=== PATIENT | male | born 1965 | race Caucasian/White ===

== ENCOUNTER 2016-06-25 13:00 | Inpatient (IN) | payer MEDICARE ==
[~2016-06-25] VITALS: Ht 180.3 cm; Wt 189.0 kg
--- NOTE | ~2016-06-25 | HP ---
PATIENT'S NAME: JELANI UP [facility] AGE: 50 Y [address] ROOM: [address] [place], [place] [address] LOCATION: GICU ADMIT DATE: 06/25/2016 History & Physical DISCHARGE DATE: FAMILY PHYSICIAN: PHYSICIAN, UNKNOWN ATTENDING PHYSICIAN: PAYTON ASCENCIO DATE OF SERVICE: CHIEF COMPLAINT: Acute GI gastrointestinal bleed. HISTORY OF PRESENT ILLNESS: This is a 50-year-old male with history of acid reflux disease, type 2 diabetes, and morbid obesity, who presented from the Emergency Room in the [facility] after presenting with a one-day history of gross melena and hematemesis. The patient tells me that he noticed bright red blood when he wiped earlier this morning, and then shortly following that, he started having nausea and vomiting with profuse gross hematemesis, which led him to promptly go to the Emergency Room. The patient, on initial evaluation in the Emergency Department was noted to be hypotensive, and was continuously having hematemesis. He required rapid resuscitation and received two units of packed cells and IV fluid resuscitation, and was started on a Levophed drip. He was transferred over to [facility] to the ICU Intensive Care Unit for continued care. The patient might have had a history of liver disease and some suggestion of possible esophageal varices on prior CT scans per report from the Emergency Room physician, but the patient tells me that he is not aware of any of this. He does not have any history of drinking that he knows, but he is a long-time diabetic. The patient is currently hemodynamically stable on a very low dose of Levophed, and is being prepped to get emergent EGD esophagogastroduodenoscopy. The patient otherwise denies any abdominal pain. Last hematemesis was about three hours ago. He is awake and alert and oriented, and fairly comfortable. He denies any fever, chills, diarrhea, or any recent sick contacts. He denies the use of [id number] NSAIDs nonsteroidal anti-inflammatory drugs, Advil, or ibuprofen use. Not on any blood thinner as well including aspirin and Plavix. PAST MEDICAL HISTORY: 1. Type 2 diabetes. 2. Morbid obesity. 3. Hypertension. 4. Chronic lower extremities swelling. SOCIAL HISTORY: PATIENT'S NAME: [facility] AGE: 50 Y [address] ROOM: [id number] [place], [place] [address] LOCATION: [facility] ADMIT DATE: 06/25/2016 History & Physical DISCHARGE DATE: FAMILY PHYSICIAN: PHYSICIAN, UNKNOWN ATTENDING PHYSICIAN: PAYTON ASCENCIO The patient was a heavy smoker. No reports of alcohol or drug use. FAMILY HISTORY: The patient has a history of stomach cancer in his mother. REVIEW OF SYSTEMS: A ten-point review of systems was conducted, and were all negative except as described in the HPI history of present illness. LABORATORY VALUES: Hemoglobin from [facility] was 11, but this was done while the patient was actively losing blood. PHYSICAL EXAMINATION: VITAL SIGNS: Blood pressure was 113/61, heart rate was 82, respiratory rate was 18, saturating 98% on 2 L nasal cannula, and temperature was 98.5. HEENT: Head: Normocephalic and atraumatic. Moist mucous membranes. No scleral icterus. No conjunctival pallor. GENERAL APPEARANCE: Obese male. No acute distress. Awake and alert and oriented x3. NECK: Supple. No JVD jugular venous distention. SKIN: Without rash or lesions. He does have chronic venous insufficiency skin changes on the lower extremities bilaterally. CHEST: Diminished breath sounds, but clear to auscultation bilaterally. HEART: S1 and S2. Regular rate and rhythm. ABDOMEN: Soft and nontender and nondistended. Positive bowel sounds. EXTREMITIES: Bilateral non-pitting edema. NEUROLOGICAL: Grossly nonfocal. ASSESSMENT AND PLAN: 1. Acute gastrointestinal bleed, likely an upper GI etiology. Differentials include bleeding ulcer, Fabienne-Feldman tear, and esophageal varices. The patient has received two units of PRBCs packed red blood cells at [facility], and received adequate volume with resuscitation with normal saline. His blood pressure right now on a very low dose of Levophed drip is 113/56, fairly stable hemodynamically. The patient is being prepped for an emergent EGD esophagogastroduodenoscopy. I will prepare two units of FFP fresh frozen plasma and packed cells, and place it on standby in case further transfusion is needed. We will closely monitor H and H hemoglobin and hematocrit every eight hours and as needed. 2. Shock secondary to acute blood loss. Management as above. 3. Acute blood loss anemia. Management as above. 4. Type 2 diabetes, on sliding-scale insulin. We will monitor Accu-Chek a.c. and at bedtime. PATIENT'S NAME: [facility] AGE: 50 Y [address] ROOM: [place] [address] LOCATION: [facility] ADMIT DATE: 06/25/2016 History & Physical DISCHARGE DATE: FAMILY PHYSICIAN: PHYSICIAN, UNKNOWN ATTENDING PHYSICIAN: PAYTON ASCENCIO 5. Morbid obesity. Lifestyle modification is advised. 6. Lower extremities edema bilaterally appeared to be related to chronic venous insufficiency. I am not sure if the patient has some form of heart failure as well, but does not report any history of coronary artery disease that he knows of. 7. DVT deep venous thrombosis prophylaxis. Use SCDs sequential compression devices. MD SHIMA HERNANDEZ/harley /[id number] D: T: 0 HISTORY & PHYSICAL
--- NOTE | ~2016-06-25 | CON ---
PATIENT'S NAME: JELANI UP [facility] AGE: 50 Y [address] ROOM: [place] [address] LOCATION: GICU ADMIT DATE: 06/25/2016 Consultation DISCHARGE DATE: FAMILY PHYSICIAN: PHYSICIAN, UNKNOWN ATTENDING PHYSICIAN: PAYTON PABLO DATE OF CONSULTATION: 06/25/2016 REFERRING PHYSICIAN: ROBERTH GONZALEZ MD REFERRING PROVIDER: Dr. Pablo. REASON FOR CONSULTATION: Upper GI bleed. HISTORY OF PRESENT ILLNESS: This is a very pleasant 50-year-old male who was recently transferred from [place] emergency room after presenting with hematemesis. The patient does recall having bright red blood per rectum yesterday evening. He then began having acute onset of bloody emesis with associated mid-epigastric discomfort. The patient does recall having 5 episodes prior to evaluation in the emergency room at [place]. The patient was noted to have esophageal varices as well as liver cirrhosis on the CT scan in December 2013. He denies any liver workup. He believes the cause for his liver disease is secondary to possible hepatitis C. The patient denies any history of upper endoscopy or colonoscopy. He denies any current associated shortness of breath or lightheadedness. The patient has been tachycardic since admission to the emergency room. The patient denies any current fever or chills, chest pain, chest pressure, or shortness of breath. On arrival to [place] emergency room, hemoglobin was found to 11.0. Current laboratory work at [facility] is pending at this time. PAST MEDICAL HISTORY: Liver cirrhosis of unknown diagnostic clear etiology, history of gastroesophageal reflux disease, hypercholesterolemia, diabetes mellitus type 2, tobacco dependency, venous insufficiency, diabetic neuropathy. PAST SURGICAL HISTORY: I and D of scrotal abscess, eye surgery, right hand surgery. No history of upper endoscopy or colonoscopy. SOCIAL HISTORY: The patient smokes approximately 1 to 2 packs of cigarettes per day. He denies any alcohol use or illicit drug use. FAMILY HISTORY: The patient's father had diabetes mellitus and heart disease. The patient's PATIENT'S NAME: JELANI UP [facility] AGE: 50 Y [address] ROOM: [place] [address] LOCATION: [facility] ADMIT DATE: 06/25/2016 Consultation DISCHARGE DATE: FAMILY PHYSICIAN: PHYSICIAN, UNKNOWN ATTENDING PHYSICIAN: PAYTON PABLO mother had stomach cancer. She also developed throat cancer and at the age of 6767 years old. ALLERGIES: PENICILLIN, SULFA, CODEINE. CURRENT MEDICATIONS: Please refer to the medication administration record. REVIEW OF SYSTEMS: A 10-point review of systems was completed. All were negative except for those identified in the history of present illness. PHYSICAL EXAMINATION: GENERAL: Pleasant 50-year-old male who appears to be in no acute distress. VITAL SIGNS: Temperature 97.7, pulse of 154, respirations of 21, oxygen saturations 93%, blood pressure 146/61. SKIN: [place], warm, dry. No jaundice. HEENT: Head is normocephalic and atraumatic. Pupils equal, round, and reactive to light. Sclerae mildly icteric. Oral mucosa is pink and moist. No thyromegaly. NECK: Soft and supple. CARDIOVASCULAR: Tachycardic. Normal S1 and S2. RESPIRATORY: Respirations even and unlabored. Slight expiratory wheeze noted. ABDOMEN: Round, distended, nontender, slightly firm. Bowel sounds hypoactive x4 quadrants. MUSCULOSKELETAL: No muscle weakness or atrophy. EXTREMITIES: No clubbing, cyanosis, or edema. NEUROLOGICAL: Grossly nonfocal. LABS AND DIAGNOSTICS: Laboratory was reviewed from outside facility. The patient had white blood cell count of 11.6, hemoglobin 11.0, hematocrit of 31.7, MCV of 112.8. Sodium 141, potassium of 3.9, chloride of 103, CO2 of 21, glucose of 253, BUN of 17, creatinine 0.79, calcium of 8.8, total protein of 6.1, globulin of 3.6, albumin of 2.5. AST of 36, ALT of 31, alkaline phosphatase of 77, total bilirubin of 2.20. ProBNP was 242. PT 19.5, INR is 1.7, PTT of 30. The patient did undergo a chest x-ray showing no acute cardiopulmonary process or concerning cardiopulmonary abnormality. KUB showed nonobstructive bowel gas pattern. ASSESSMENT AND PLAN: Again, this is a 50-year-old male who was transferred from [facility] with acute upper GI bleed. The patient most likely has variceal bleed with PATIENT'S NAME: JELANI UP [facility] AGE: 50 Y [address] ROOM: [address] [place], [place] [address] LOCATION: GICU ADMIT DATE: 06/25/2016 Consultation DISCHARGE DATE: FAMILY PHYSICIAN: PHYSICIAN, UNKNOWN ATTENDING PHYSICIAN: PAYTON PABLO known liver cirrhosis. The patient will undergo an upper endoscopy for further evaluation. We will be placing the patient on octreotide drip with a bolus to be given. Rocephin 1 g will be given prior to procedure and continued every 24 hours as well as erythromycin 250 mg IV for emptying of the stomach. The patient's INR was slightly elevated at 1.7 as we will be giving 2 units of fresh frozen plasma prior to the endoscopy as well. This was discussed with the patient as well as the patient's significant other who was at bedside during our interview. The patient verbalizes understanding. Further recommendations to be given status post upper endoscopy. The patient currently is also on a Protonix drip and should be continued as well until further investigation. Thank you for this consult and allowing us to participate in the care of this patient. We will continue to monitor, evaluate, and treat as appropriate. FABIÁN WILKES APRN FOR MD RODOLFO FRASER/harley /[id number] d: 06/25/167 t: 07/02/16 0851, CONSULTATION REPORT
--- NOTE | ~2016-06-25 | DS ---
PATIENT'S NAME: JELANI UP [facility] AGE: 50 Y [address] ROOM: [id number] [place], [place] [address] LOCATION: GICU ADMIT DATE: 06/25/2016 Discharge Summary DISCHARGE DATE: FAMILY PHYSICIAN: Physician, Unknown ATTENDING PHYSICIAN: Delvis Pablo The patient is being transferred to [facility] for higher several level of care. PRINCIPAL DIAGNOSES: 1. Acute hypovolemic shock. 2. Upper gastrointestinal bleed secondary to esophageal varices. 3. Cirrhosis. 4. Morbid obesity. 5. Acute kidney injury. HOSPITAL COURSE: A 50-year-old gentleman with no significant past medical history, was transferred from [place] to [facility] with upper GI bleeding. He was having massive hematemesis and he was intubated for airway protection. Volume resuscitation was started. Adequate peripheral as well as central intravenous access was obtained. Gastroenterology was consulted and an upper endoscopy was undertaken, which showed grade 4 distal esophageal as well as gastric varices which could not be banded by our patroller. Emergency consultation to interventional radiologist was made for TIPS. Our radiologist was off day and he came in to do TIPS. On his assessment based on RA and hepatic wedge pressure, he did not deem the patient is a candidate for TIPS. Our patroller deem given this information that he probably have downhill gastric varices and we got a CAT scan of the chest in order to rule out any superior vena cava obstruction. There was no superior vena cava obstruction, but on CAT scan, he did have all the stigmata of the end-stage liver disease and portal hypertension. I did speak to the patroller, Dr. Rincon and took his second opinion as well as I took the opinion of another radiologist. They both agreed that this is secondary to portal hypertension. We do not have any availability of Interventional Radiology to do this procedure at this point. Dr. Rincon as well as graciously accepted the patient to be transferred to the [facility]. At the time of the transfer, the patient have blood pressure with the MAPs knee in 70. He is off Levophed drip now, which he was on earlier. His last hemoglobin level was 9.8, hematocrit of 29, white count of 12.3, and platelets of 73. After this draw, we did infuse him 2 units of PRBC anticipating more blood loss with this variceal bleed going on. CMP showed sodium of 140, potassium 4.4, chloride 107, bicarbonate 27, calcium 7.4, glucose of 233. GFR of 58. Most recent ABG done showed pH of 7.32, pCO2 of 52, PO2 of 104, lactic acid level of 2.4. He will be transferred on octreotide drip, Protonix drip, Levophed to keep the MAPs above 65 if needed. Flight we will carry 2 units of PATIENT'S NAME: JELANI UP [facility] AGE: 50 Y [address] ROOM: [place] [address] LOCATION: [facility] ADMIT DATE: 06/25/2016 Discharge Summary DISCHARGE DATE: FAMILY PHYSICIAN: Physician, Unknown ATTENDING PHYSICIAN: Delvis Pablo PRBC and 2 units of 1 L Ringer's lactate if the patient became hypotensive during the transport. The risk of transfer were explained to the . She agreed to proceed with the transfer. I spent 1 hour in transfer planning of this patient. MD DYAN HERNANDEZ/harley /[id number] d: 06/26/16 0439 t: 06/26/16 0627, DISCHARGE SUMMARY
[2016-06-25] MEDS ORDERED: K-TAB ER20 MEQ PO (14:44)
[2016-06-25] MEDS ORDERED: PRILOSEC20 MG PO (14:45)
[2016-06-25] MEDS ORDERED: ZOCOR20 MG PO (14:45)
[2016-06-25] MEDS ORDERED: METFORMIN HCL1000 MG PO (14:45)
[2016-06-25] MEDS ORDERED: AMARYL4 MG PO (14:46)
[2016-06-25] MEDS ORDERED: TYLENOL EXTRA500 MG PO (14:46)
[2016-06-25] MEDS ORDERED: LEVEMIR FL100 UNIT/1 SUB-Q (14:47)
[2016-06-25 15:28] LABS: BASOPHIL % 0.3 %; EOSINOPHIL % 0.2 %; HEMATOCRIT 36.4 % (37.0-53.0); HEMOGLOBIN 12.4 g/dL (12.0-17.0); IMMATURE GRANULOCYTE # 0.1 K/uL (0.0-0.3); IMMATURE GRANULOCYTE % 0.4 %; LYMPHOCYTE # 1.6 K/uL (0.8-4.0); LYMPHOCYTE % 12.2 %; MCH 37.5 pg (27.0-34.0); MCHC 34.1 gm/dL (32.0-36.5); MONOCYTE # 1.1 K/uL (0.0-1.0); MONOCYTE % 8.3 %; MPV 9.9 fl (9.4-12.4); NEUTROPHIL # (ANC) 10.3 K/uL (1.4-9.0); NEUTROPHIL % 78.6 %; NRBC % 0 /100WBC (0-0.00); PLATELET COUNT 96 K/uL (150-450); RBC 3.31 M/uL (4.00-6.00); RDW-CV 17.8 % (11.9-14.6)
[2016-06-25 15:41] LABS: ALBUMIN 2.4 gm/dL (3.5-5.0); ANION GAP 16.4 (10.0-19.0); BLOOD UREA NITROGEN 22 mg/dL (6-24); CALCIUM 8.3 mg/dL (8.5-10.5); CHLORIDE 105 mMol/L (96-110); CO2 25 mMol/L (22-32); CREATININE 1.2 mg/dL (0.6-1.3); ESTIMATED GFR (MDRD EQUATION) > 60; MAGNESIUM 1.4 mg/dL (1.3-2.6); PHOSPHORUS 3.7 mg/dL (2.5-4.9); POTASSIUM 4.4 mMol/L (3.7-5.1); SODIUM 142 mMol/L (135-145)
[2016-06-25 16:03] LABS: INR - (THERAPEUTIC) 1.4 (0.9-1.1); PROTIME 15.5 SECONDS (9.6-11.1)
[2016-06-25 16:30] LABS: ALBUMIN 2.4 gm/dL (3.5-5.0); ALK PHOS 84 IU/L (33-138); ALT 28 IU/L (12-78); BLOOD UREA NITROGEN 21 mg/dL (6-24); CALCIUM 8.2 mg/dL (8.5-10.5); CHLORIDE 104 mMol/L (96-110); CO2 23 mMol/L (22-32); CREATININE 1.2 mg/dL (0.6-1.3); ESTIMATED GFR (MDRD EQUATION) > 60; SODIUM 141 mMol/L (135-145); TOTAL PROTEIN 6.3 g/dL (6.0-8.4)
[2016-06-25 16:35] LABS: ANION GAP 18.5 (10.0-19.0); AST 44 IU/L (10-40); POTASSIUM 4.5 mMol/L (3.7-5.1)
[2016-06-25 18:51] LABS: BASOPHIL % 0.2 %; EOSINOPHIL # 0.1 K/uL (0.0-0.5); EOSINOPHIL % 0.5 %; HEMATOCRIT 31.1 % (37.0-53.0); HEMOGLOBIN 10.5 g/dL (12.0-17.0); IMMATURE GRANULOCYTE % 0.2 %; LYMPHOCYTE # 1.2 K/uL (0.8-4.0); LYMPHOCYTE % 12.6 %; MCH 37.4 pg (27.0-34.0); MCHC 33.8 gm/dL (32.0-36.5); MCV 110.7 fl (83.0-98.0); MONOCYTE # 0.8 K/uL (0.0-1.0); MONOCYTE % 8.5 %; MPV 10.3 fl (9.4-12.4); NEUTROPHIL # (ANC) 7.5 K/uL (1.4-9.0); NRBC % 0 /100WBC (0-0.00); RBC 2.81 M/uL (4.00-6.00); RDW-CV 18.1 % (11.9-14.6); WBC 9.7 K/uL (4.0-11.0)
[2016-06-25 18:52] LABS: PLATELET COUNT 70 K/uL (150-450)
--- NOTE | 2016-06-25 18:57 | NUR ---
Significant Event: Arrived to ICU at 1350 for GI bleeding with hypotension. Levophed weaned off after arrival. BP remained stable despite tachycardia in 150s. Intubated prior to EGD for airway protection. Pt was alert and oriented until procedural sedation started. 2 units FFP given. Octreotide and Protonix gtts started. Did have blood emesis and 1 maroon bowel movement. Large esophageal varices found during EGD, and orders received to transfer for higher level of care. Follow up: continue
[2016-06-25 21:22] LABS: HEMATOCRIT 31.5 % (37.0-53.0); HEMOGLOBIN 10.7 g/dL (12.0-17.0)
[2016-06-25 23:20] LABS: HEMATOCRIT 32.8 % (37.0-53.0); HEMOGLOBIN 10.9 g/dL (12.0-17.0)
[2016-06-25 23:50] LABS: ANION GAP 15.4 (10.0-19.0); CALCIUM 7.6 mg/dL (8.5-10.5); CREATININE 1.3 mg/dL (0.6-1.3); POTASSIUM 5.4 mMol/L (3.7-5.1)
[2016-06-26 02:45] LABS: BICARBONATE 26.8 mmol/L (18.0-23.0); PCO2 52 mmHg (35-45); PO2 104 mmHg (80-90)
[2016-06-26 02:46] LABS: BASOPHIL # 0.1 K/uL (0.0-0.2); BASOPHIL % 0.6 %; EOSINOPHIL # 0.3 K/uL (0.0-0.5); EOSINOPHIL % 2.4 %; HEMATOCRIT 29.2 % (37.0-53.0); HEMOGLOBIN 9.8 g/dL (12.0-17.0); IMMATURE GRANULOCYTE % 0.2 %; LACTATE 2.4 mEq/L (0.50-1.60); LYMPHOCYTE # 1.4 K/uL (0.8-4.0); LYMPHOCYTE % 11.6 %; MCH 37.3 pg (27.0-34.0); MCHC 33.6 gm/dL (32.0-36.5); MONOCYTE % 8.2 %; MPV 9.9 fl (9.4-12.4); NEUTROPHIL # (ANC) 9.5 K/uL (1.4-9.0); NRBC % 0 /100WBC (0-0.00); PLATELET COUNT 73 K/uL (150-450); RBC 2.63 M/uL (4.00-6.00); RDW-CV 18.5 % (11.9-14.6); WBC 12.3 K/uL (4.0-11.0)
[2016-06-26 02:59] LABS: CREATININE 1.3 mg/dL (0.6-1.3)
[2016-06-26 03:00] LABS: ANION GAP 12.4 (10.0-19.0); CALCIUM 7.4 mg/dL (8.5-10.5); POTASSIUM 4.4 mMol/L (3.7-5.1)
[2016-06-26 03:56] LABS: ALPHA ANGLE 57 degrees (70-81); CLOTTING TIME 68 seconds (43-82); MAXIMUM CLOT FIRMNESS 44 mm (51-72)
--- NOTE | 2016-06-26 04:44 | NUR ---
Significant Event: Patient sedated with precedex at 0.5mcg/kg/hr. Moves spontaneously in all 4 extremeties. No commands. Sinus rhythm, tachycardic and possible afib at one point in the night. BP stable currently with levophed currently at 0.03mcg/kg/min. On ventilator currently at 80%fio2, lung sounds clear and diminished throughout, small amount of clear thing secretions. Bowel sounds hypoactive, abdoment distended and firm. No bm this shift. [place] intact, low UOP 255 for shift. Skin abnormalities noted. Afebrile. Began bleeding from mouth and nose after CT scan this AM, MDs aware, possible transfer today if placement is found. Follow up: Monitor, contine. Possibly transfer.
--- NOTE | 2016-06-26 05:46 | NUR ---
Pt transferred to angio suite for procedure last night. Vent settings of AC 14, Vt 600ml, PEEP 8, FiO2 weaned to 60%. Suctioned small amounts of cream, thick secretions from ETT. High PIPs at beginning of shift in mid 40s. EtCO2 40s. This AM patient transferred to CT, after CT patient bleeding from nose and mouth, pt rushed back up to ICU for management. RR increased to 18. Possible transfer out of facility?
[2016-06-26 06:10] LABS: BICARBONATE 25.9 mmol/L (18.0-23.0); PO2 99 mmHg (80-90)
[2016-06-26 06:11] LABS: HEMATOCRIT 33.7 % (37.0-53.0); HEMOGLOBIN 11.8 g/dL (12.0-17.0)
[2016-06-26 06:12] LABS: PCO2 39 mmHg (35-45)
--- NOTE | 2016-06-26 08:00 | NUR ---
Patient in process of transferring out of facility at shift change. Vital signs stable with Levophed gtt. Fentanyl given IVP for additional sedation and fentanyl gtt started by flight crew. Monitors and lines switched to transport equipment then patient mechanically lifted to transport cart without complication. 2 units PRBCs transferred with patient.
== END 2016-06-26 07:30 | disposition hospice, home (50) | DRG 368 ==
LOC: GICU 13:00
PROVIDERS: Internal Medicine; Internal Medicine Critical Care Medicine; Internal Medicine Gastroenterology; Nurse Anesthetist, Certified Registered; Registered Nurse; ADMIT Internal Medicine
PROC: 30233N1 Transfusion of Nonautologous Red Blood Cells into Peripheral Vein, Percutaneous Approach (ICD-10-PCS; principal; 2016-06-25)
PROC: 0DJ08ZZ Inspection of Upper Intestinal Tract, Via Natural or Artificial Opening Endoscopic (ICD-10-PCS; 2016-06-25)
PROC: B51T1ZA Fluoroscopy of Portal and Splanchnic Veins using Low Osmolar Contrast, Guidance (ICD-10-PCS; 2016-06-25)
PROC: 02H633Z Insertion of Infusion Device into Right Atrium, Percutaneous Approach (ICD-10-PCS; 2016-06-25)
PROC: B214YZZ Fluoroscopy of Right Heart using Other Contrast (ICD-10-PCS; 2016-06-25)
DX: I85.01 Esophageal varices with bleeding (principal); R57.1 Hypovolemic shock; J96.01 Acute respiratory failure with hypoxia; N17.9 Acute kidney failure, unspecified; Z68.43 Body mass index [BMI] 50.0-59.9, adult; I50.9 Heart failure, unspecified; K76.6 Portal hypertension; D62 Acute posthemorrhagic anemia; E11.9 Type 2 diabetes mellitus without complications; E66.01 Morbid (severe) obesity due to excess calories; E87.5 Hyperkalemia; K74.60 Unspecified cirrhosis of liver; K92.0 Hematemesis; R60.0 Localized edema; K72.90 Hepatic failure, unspecified without coma; F17.210 Nicotine dependence, cigarettes, uncomplicated; Z79.4 Long term (current) use of insulin
CPT/HCPCS: C1769; C1887; C9113; J0696; J1364; J1644; J2250; J2354; J2405; J2704; J2765; J3010; J7030; J7040; J7050; J7060; J7120; P9016; P9017; P9047; Q9967